=== PATIENT | female | born 1960 | race Caucasian/White ===

== ENCOUNTER 2017-05-11 10:03 | Inpatient (IN) | payer BC ==
[2017-05-11] VITALS (11 sets, daily range): BP systolic 102–170; BP diastolic 58–88; PULSE 52–78; TEMP 97.5–98.1
[~2017-05-11] VITALS: Ht 165.1 cm; Wt 78.2 kg
[~2017-05-11 10:03] MED LIST: ALAVERT10 M1 PO; ALEVE220 MG PO; CLARITIN REDITA10 MG PO; ELTROXIN PO; ESTRACE0.5 MG PO; HYDROCHLOR50 MG PO; PRILOSEC 20MG20 MG PO; SERTRALINE50 MG PO; ZYRTEC 10MG10 MG PO; [UNRECOGNIZED DRUG - OTHER]
[2017-05-11] MEDS ORDERED: ZOLOFT 50MG50 MG PO (11:34)
[2017-05-11] MEDS ORDERED: ESTRACE0.5 MG PO (11:34)
[2017-05-11] MEDS ORDERED: ALAVERT10 M1 PO (11:36)
[2017-05-11] MEDS ORDERED: B-121000 MCG PO (11:38)
[2017-05-11] MEDS ORDERED: ALEVE 220MG220 MG PO (11:39)
[2017-05-11] MEDS ORDERED: TYLENOL 500MG500 MG PO (11:40)
[2017-05-11] MEDS ORDERED: RHINOCORT0.032 MG/1 NS (11:41)
[2017-05-11] MEDS ORDERED: KLONOPIN2 MG PO (11:42)
[2017-05-11] MEDS ORDERED: MYCOSTATIN100000 U/G TP (11:43)
[2017-05-11] MEDS ORDERED: EXCEDRIN TENSIO1 TAB PO (11:44)
[2017-05-11] MEDS ORDERED: HAIRSKINNAILS PO (11:46)
[2017-05-11] MEDS ORDERED: MULTIVITAMIN FO1 CAP PO (11:46)
[2017-05-11] MEDS ORDERED: ADVIL200 MG PO (11:47)
[2017-05-12 01:57] VITALS: BP 125/77; PULSE 73; TEMP 98.2
[2017-05-12 05:05] VITALS: BP 136/72; PULSE 58; TEMP 98.2
[2017-05-12 09:49] VITALS: BP 143/71; PULSE 52; TEMP 98.7
[2017-05-12 13:58] VITALS: BP 129/65; PULSE 81; TEMP 98.4
[2017-05-12 18:04] VITALS: BP 145/74; PULSE 58
[2017-05-12 21:49] VITALS: BP 137/69; PULSE 71; TEMP 98.1
[2017-05-13 01:57] VITALS: BP 114/66; PULSE 60; TEMP 98.3
[2017-05-13 05:38] VITALS: BP 138/69; PULSE 55; TEMP 98.3
[2017-05-13 09:18] VITALS: BP 111/63; PULSE 64; TEMP 98
== END 2017-05-13 10:50 | disposition home or self-care (01) | DRG 748 ==
LOC: SDCO 10:03 → SURG 16:20 → SDCO 16:21 → SURG 05-13 10:50
PROVIDERS: Urology
PROC: 8E0W4CZ Robotic Assisted Procedure of Trunk Region, Percutaneous Endoscopic Approach (ICD-10-PCS; 2017-05-11)
PROC: 0USG4ZZ Reposition Vagina, Percutaneous Endoscopic Approach (ICD-10-PCS; principal; 2017-05-11 11:30)
PROC: 0DSP4ZZ Reposition Rectum, Percutaneous Endoscopic Approach (ICD-10-PCS; 2017-05-11 11:30)
DX: N99.3 Prolapse of vaginal vault after hysterectomy (principal); N36.42 Intrinsic sphincter deficiency (ISD); N39.3 Stress incontinence (female) (male); I10 Essential (primary) hypertension
CPT/HCPCS: OP; A4315; A9284; C1713; C1781; J0360; J0690; J1100; J1170; J1644; J1885; J2370; J2405; J2704; J2710; J3010; J7120

== ENCOUNTER → 2017-10-01 | Outpatient (CLI) | payer BC ==
[~2017-10-01] MED LIST changes: +ADVIL200 MG PO; +ALEVE 220MG220 MG PO; +B-121000 MCG PO; +EXCEDRIN TENSIO1 TAB PO; +HAIRSKINNAILS PO; +KLONOPIN2 MG PO; +MULTIVITAMIN FO1 CAP PO; +MYCOSTATIN100000 U/G TP; +RHINOCORT0.032 MG/1 NS; +TYLENOL 500MG500 MG PO; +ZOLOFT 50MG50 MG PO
== END ==
LOC: MC.RAD 12:54
DX: N64.89 Other specified disorders of breast (principal)

== ENCOUNTER → 2018-07-22 | Outpatient (CLI) | payer BC | LOC: COL.RAD 07-20 09:00 | DX: K21.0 Gastro-esophageal reflux disease with esophagitis (principal); R11.0 Nausea; R10.9 Unspecified abdominal pain; K59.00 Constipation, unspecified; R19.7 Diarrhea, unspecified ==

== ENCOUNTER → 2018-08-08 | Outpatient (CLI) | payer BC | LOC: COL.RAD 06:43 | DX: K59.00 Constipation, unspecified (principal); R19.7 Diarrhea, unspecified | CPT/HCPCS: A9537 ==

== ENCOUNTER → 2018-11-03 | Outpatient (CLI) | payer BC | LOC: MC.RAD 11:32 | DX: Z12.31 Encounter for screening mammogram for malignant neoplasm of breast (principal) ==

== ENCOUNTER → 2019-12-08 | Outpatient (CLI) | payer BC | LOC: MC.RAD 11:15 | DX: Z12.31 Encounter for screening mammogram for malignant neoplasm of breast (principal); Z98.890 Other specified postprocedural states ==

== ENCOUNTER → 2021-02-27 | Outpatient (CLI) | payer BC | LOC: MC.RAD 12:00 | DX: Z12.31 Encounter for screening mammogram for malignant neoplasm of breast (principal); Z98.82 Breast implant status ==

== ENCOUNTER → 2022-04-02 | Outpatient (CLI) | payer BC | LOC: MC.RAD 09:28 | DX: Z12.31 Encounter for screening mammogram for malignant neoplasm of breast (principal) ==

== ENCOUNTER 2022-06-03 07:19 | Day surgery (SDC) | payer BC ==
[~2022-06-03] VITALS: Ht 162.6 cm; Wt 76.3 kg
[2022-06-03] VITALS (11 sets, daily range): BP systolic 133–150; BP diastolic 65–83; PULSE 56–77; TEMP 97–98.1
[2022-06-03] MEDS ORDERED: TOPROL XL 25MG25 MG PO (09:19)
[2022-06-03] MEDS ORDERED: HCTZ 25MG TAB25 MG PO (09:19)
[2022-06-03] MEDS ORDERED: NORVASC 10MG10 MG PO (09:19)
[2022-06-03] MEDS ORDERED: SYNTHROID0.075 MG/T PO (09:20)
[2022-06-03] MEDS ORDERED: ZOLOFT 50MG50 MG PO (09:20)
[2022-06-03] MEDS ORDERED: ESTRADERM0.05 MG/24 TD (09:21)
[2022-06-03] MEDS ORDERED: CLARITIN 1010 MG/TAB PO (09:22)
[2022-06-03] MEDS ORDERED: PRIL40 PO (09:23)
[2022-06-03] MEDS ORDERED: ASPIRIN 81M81 MG/TA2 PO (09:24)
[2022-06-03] MEDS ORDERED: PROBIOTIC 2 BI1 EACH PO (09:25)
--- NOTE | 2022-06-03 12:40 | NUR ---
PT BROUGHT TO ROOM 347 BY BED A&O. POST OP VS STABLE. IV FLUIDS RUNNING IN RT HAND. ABDX6 INCISIONS CDI. UP TO BATHROOM W AN OUTPUT OF 700CC. NASAL CANNULA AT 2L O2. NO OTHER NEEDS AT THIS TIME. CALL LIGHT WITHIN REACH.
[2022-06-04 03:43] VITALS: BP 150/74; PULSE 60; TEMP 97.5
--- NOTE | 2022-06-04 07:29 | NUR ---
Pt has had an uneventful shift. Pt has had minimal complaints of pain, PRN pain medication given per EMAR. Pt has been ambulating the halls with a steady gait and no signs of weakness. Pts bandage sites are CDI. Assessment and medication administration completed without difficulty. Pt is A&Ox3. All other needs met at this time. Call light within reach.
[2022-06-04 07:43] VITALS: BP 148/71; PULSE 58; TEMP 98.5
--- NOTE | 2022-06-04 09:19 | NUR ---
MISAEL met with the patient to discuss discharge plan. The patient lives in [place] with her , Kavon (ph#[phone]). She reports independence with ADLs and does not have any DME. The patient sees TAYLOR Manzanares and the new provider, Dr. Ev Mancilla at the [facility] for primary care and she receives her medications from [facility]. The patient does not have a DPOA-HC, but she was interested in obtaining a form. MISAEL provided. The patient plans to return home with her upon discharge. No additional needs at this time. *Discharge plan: home with *
--- NOTE | 2022-06-04 09:40 | NUR ---
Initial visit; Patient thanked [employer] for offering God's blessings and states she is about to be discharged. [employer]ist wished her well.
--- NOTE | 2022-06-04 10:24 | NUR ---
PATIENT ALERT AND ORIENTED X3. VSS. PATIENT REPORTS PAIN 8/10 WITH HEADACHE AND DISCOMFORT FROM GAS. PATIENT ENCOURAGED TO AMBULATE THROUGHOUT HER ROOM. PATIENT REQUESTS PAIN MEDICATION. ASSESSMENT PERFORMED. AM MEDS ADMINISTERED. CALL LIGHT WITHIN REACH.
[2022-06-04 11:49] VITALS: BP 139/60; PULSE 59; TEMP 98.4
--- NOTE | 2022-06-04 13:05 | NUR ---
PATIENT BECOMING INCREASINGY AGITATED, WANTED OUT OF BED. PCT AND NURSE WALKED PATIENT TO BATHROOM, PATIENT USED URINAL BUT REFUSED TO UTILIZE THE BATHROOM. PATIENT CONFUSED, UNABLE TO ORIENT PATIENT TO SITUATION, PLACE, OR TIME. PATIENT GIVEN IM INJECTION PER EMAR. PATIENT PLACED BACK IN BED WITH BED ALARM ON. SITTER IN PLACE.
[2022-06-04] MEDS ORDERED: NORCO 325 MG-51 TAB PO (16:41)
--- NOTE | 2022-06-04 17:20 | NUR ---
PATIENT SIGNATURE FORM FOR PATIENT EDUCATION NOT PRINTED. PATIENT EDUCATION PROVIDED. PATIENT DENIED ANY QUESTIONS.
--- NOTE | 2022-06-04 17:41 | NUR ---
DISCHARGE INSTRUCTIONS PROVIDED. PATIENT EDUCATION GIVEN. IV DC'D. FOLLOW UP APPT DISCUSSED. PATIENT DENIES ANY QUESTIONS OR CONCERNS. PATIENT ESCORTED OUT VIA WHEELCHAIR.
== END 2022-06-04 17:30 | disposition home or self-care (01) ==
LOC: SDCO 07:19 → SURG 12:30 → SDCO 06-04 17:30
DX: K21.9 Gastro-esophageal reflux disease without esophagitis (principal); Z87.891 Personal history of nicotine dependence
CPT/HCPCS: OP; J0330; J0690; J1100; J2250; J2405; J2704; J2765; J3010; J7120

== ENCOUNTER → 2024-06-06 | Outpatient (CLI) | payer BC ==
[~2024-06-06] MED LIST changes: +ASPIRIN 81M81 MG/TA2 PO; +CLARITIN 1010 MG/TAB PO; +ESTRADERM0.05 MG/24 TD; +HCTZ 25MG TAB25 MG PO; +NORCO 325 MG-51 TAB PO; +NORVASC 10MG10 MG PO; +PRIL40 PO; +PROBIOTIC 2 BI1 EACH PO; +SYNTHROID0.075 MG/T PO; +TOPROL XL 25MG25 MG PO
== END ==
LOC: MC.RAD 14:24
DX: Z12.31 Encounter for screening mammogram for malignant neoplasm of breast (principal)